=== PATIENT | female | born 1950 | race Caucasian/White ===

== ENCOUNTER → 2017-07-06 | Outpatient (CLI) | payer MEDICARE, BC, OTHER ==
[2017-07-06 13:38] LABS: ANION GAP 7 MEQ/L (8-16); BLOOD UREA NITROGEN 33 MG/DL (7-18); CALCIUM LEVEL 9.7 MG/DL (8.8-10.2); CARBON DIOXIDE LEVEL 32 MEQ/L (21-32); CHLORIDE LEVEL 97 MEQ/L (98-107); CREATININE FOR GFR 1.52 MG/DL (0.55-1.30); GLOMERULAR FILTRATION RATE 36.2 (>45); GLUCOSE, FASTING 120 MG/DL (70-100); POTASSIUM SERUM 4.6 MEQ/L (3.5-5.1); SODIUM LEVEL 136 MEQ/L (136-145)
== END ==
LOC: M LAB 12:53
DX: Z01.812 Encounter for preprocedural laboratory examination (principal); M10.041 Idiopathic gout, right hand; M19.041 Primary osteoarthritis, right hand
CPT/HCPCS: 80048

== ENCOUNTER → 2017-07-08 | Outpatient (REF) | payer MEDICARE, OTHER | LOC: M LAB REF 15:38 | DX: M10.041 Idiopathic gout, right hand (principal) | CPT/HCPCS: 87186; 87205 ==

== ENCOUNTER → 2018-07-30 | Outpatient (REF) | payer MEDICARE, OTHER | LOC: M SFHCLERA 10:27 | PROVIDERS: ATTEND Nurse Practitioner Family | DX: N30.01 Acute cystitis with hematuria (principal) | CPT/HCPCS: 81002; 87088; 87186; G0463 ==

== ENCOUNTER → 2019-05-23 | Outpatient (REF) | payer MEDICARE, OTHER ==
[2019-05-23 15:32] LABS: URINE TOTAL PROTEIN 35.5 MG/DL (0-12)
[2019-05-23 15:43] LABS: COMPLEMENT C3 140 MG/DL (90-180); COMPLEMENT C4 35 MG/DL (10-40); TOTAL PROTEIN 7.1 GM/DL (6.4-8.2)
[2019-05-24 10:38] LABS: HEPATITIS B SURFACE ANTIBODY NEGATIVE (POSITIVE)
[2019-05-24 10:49] LABS: HEPATITIS B SURFACE ANTIGEN NEGATIVE (NEGATIVE)
[2019-05-24 11:16] LABS: HEPATITIS C VIRUS ABY INDEX < 0.0 INDEX (<0.8)
[2019-05-24 11:18] LABS: HEPATITIS B CORE ANTIBODY IGM NEGATIVE (NEGATIVE)
[2019-05-25 12:04] LABS: ALBUMIN 4.32 GM/DL (3.29-5.55); ALBUMIN % 60.9 % (55.8-66.1); ALPHA-1-GLOBULIN % 3.7 % (2.9-4.9); ALPHA-1-GLOBULINS 0.26 GM/DL (0.17-0.41); ALPHA-2-GLOBULINS 0.85 GM/DL (0.42-0.99); BETA-1-GLOBULINS 0.44 GM/DL (0.28-0.60); BETA-1-GLOBULINS % 6.2 % (4.7-7.2); BETA-2-GLOBULINS 0.38 GM/DL (0.19-0.55); BETA-2-GLOBULINS % 5.3 % (3.2-6.5); GAMMA GLOBULIN % 11.9 % (11.1-18.8); GAMMA GLOBULINS 0.84 GM/DL (0.65-1.58)
[2019-05-25 14:44] LABS: UPEP INTERPRETATION NO M-SPIKE NOTED; URINE VOLUME RANDOM ML
== END ==
LOC: M LAB REF 13:13
PROVIDERS: ATTEND Internal Medicine Nephrology
DX: R80.9 Proteinuria, unspecified (principal)

== ENCOUNTER → 2019-05-29 | Outpatient (CLI) | payer MEDICARE, BC, OTHER ==
--- NOTE | 2019-05-29 08:32 | REP ---
Urinary tract sonogram: History: Chronic kidney disease stage III. Comparison: Comparison sonography August 11, 2010. Findings: Scanning at the level of the urinary bladder shows no abnormality. Renal cortical echogenicity pattern is isoechoic with liver consistent with medical renal disease bilaterally. Renal contours are smooth. There is no evidence of hydronephrosis, cyst, mass, or calculus in either kidney. The right kidney measures 10.1 x 5.1 x 5.3 cm. There is an echogenic focus in the upper pole right kidney which may correlate with an intrarenal calculus. Left renal dimensions are 9.8 x 4.4 x 4.4 cm. Impression: Possible intrarenal calculus upper pole right kidney. Slightly increased renal cortical echogenicity pattern consistent with chronic medical renal disease. Otherwise negative negative urinary tract sonography. Electronically Signed by Mohan Bustos MD 05/29/2019 08:25 A
== END ==
LOC: M RAD 07:50
PROVIDERS: ATTEND Internal Medicine Nephrology
DX: I12.9 Hypertensive chronic kidney disease with stage 1 through stage 4 chronic kidney disease, or unspecified chronic kidney disease (principal); N18.3 Chronic kidney disease, stage 3 (moderate); E11.22 Type 2 diabetes mellitus with diabetic chronic kidney disease

== ENCOUNTER → 2020-08-28 | Outpatient (CLI) | payer MEDICARE, BC, OTHER ==
--- NOTE | 2020-08-28 10:08 | REP ---
INDICATION: PAIN. COMPARISON: None TECHNIQUE: Three views of the shoulder were performed. FINDINGS: There is moderate to severe hypertrophic degenerative change seen involving the acromioclavicular joint with asymmetric joint space narrowing and marginal osteophytosis. There is a spur arising from the inferior surface of the acromion process projecting into the subacromial space. The glenohumeral relationship is within normal limits. There is no acute fracture, dislocation, or subluxation. The small nodular densities seen in the imaged portion of the right lung upper lobe region. There are no prior chest radiographs for comparison. IMPRESSION: 1. AC joint DJD as described above. 2. Right lung nodular density as described above. Since are no priors comparison CT examination of the chest is warranted. <Electronically signed by Wagner Mir > 08/28/20 [id number]
== END ==
LOC: M WUC 09:42
PROVIDERS: ATTEND Physician Assistant
DX: M19.011 Primary osteoarthritis, right shoulder (principal)

== ENCOUNTER → 2021-08-05 | Outpatient (CLI) | payer MEDICARE, BC, OTHER | LOC: M WUC 10:09 | PROVIDERS: ATTEND Physician Assistant | DX: S61.452A Open bite of left hand, initial encounter (principal); W54.0XXA Bitten by dog, initial encounter; Y92.9 Unspecified place or not applicable; Y93.9 Activity, unspecified; Y99.9 Unspecified external cause status; M25.542 Pain in joints of left hand ==

== ENCOUNTER → 2022-08-12 | Outpatient (CLI) | payer MEDICARE, BC, OTHER | LOC: M WUC 09:26 | PROVIDERS: ATTEND Physician Assistant | DX: R91.8 Other nonspecific abnormal finding of lung field (principal); I10 Essential (primary) hypertension ==

== ENCOUNTER → 2023-10-22 | Outpatient (CLI) | payer MEDICARE, BC | LOC: M WHC 14:55 | PROVIDERS: ATTEND Physician Assistant | DX: Z12.31 Encounter for screening mammogram for malignant neoplasm of breast (principal) ==

== ENCOUNTER → 2025-01-02 | Outpatient (CLI) | payer MEDICARE, BC | LOC: M RAD 14:20 | PROVIDERS: ATTEND Physician Assistant | DX: I65.23 Occlusion and stenosis of bilateral carotid arteries (principal) ==

== ENCOUNTER → 2025-02-14 | Outpatient (CLI) | payer MEDICARE, BC | LOC: M CARPUL 14:15 | PROVIDERS: ATTEND Physician Assistant | DX: R01.1 Cardiac murmur, unspecified (principal); I08.0 Rheumatic disorders of both mitral and aortic valves; I37.1 Nonrheumatic pulmonary valve insufficiency ==